=== PATIENT | male | born 1970 | race African-American/Black ===

== ENCOUNTER 2018-01-31 13:01 | Emergency (ER) | payer OTHER, MEDICAID ==
[~2018-01-31] VITALS: Ht 180.3 cm; Wt 131.1 kg
[~2018-01-31 13:01] MED LIST: AMOXICILLIN 50500 MG PO; AMOXICILLIN875 MG PO; AMOXIL 875 MG875 M1 PO; ANTIVERT25 MG PO; ASPIRIN325 PO; BACTRIM DS TAB1 EACH PO; CYCLOBENZAPRINE5 MG PO; ELIQUIS5 MG PO; FLEXERIL PO; HYDROCODONE-AP1 EAC6 PO; IBUPROFEN 600600 M1 PO; IBUPROFEN 800800 M1 PO; LIDOCAINE VISC100 M1 MM; MEDROLDOSEPACK PO; MUCINEX D TABL1 EAC1 PO; NAPROSYN500 MG PO; NOHOMEMEDICATIONS; NORCO 5-325 TA1 EAC1 PO; NORCO 5-325 TA1 EACH PO; OXYCODONE HCL 55 MG PO; OXYCONTIN10 M1 PO; PENICILLIN V P500 MG PO; PENICILLIN VK500 MG PO; PREDNISONE 10 M10 M1 PO; TRAMADOL 50 MG50 MG PO; VALIUM2 MG PO; VEETIDS 250MG250 M1 PO; XARELTO15 MG PO; XARELTO20 MG PO; ZPAK PO
[2018-01-31 13:57] LABS: ABSOLUTE BASOPHILS 0.1 thou/uL (0.0-0.2); ABSOLUTE EOSINOPHILS 0.2 thou/uL (0.0-0.7); ABSOLUTE LYMPHOCYTES 3.3 thou/uL (0.8-5.3); ABSOLUTE MONOCYTES 0.6 thou/uL (0.0-1.2); ABSOLUTE NEUTROPHILS 2.9 thou/uL (1.6-8.1); EOSINOPHILS 2.5 %; HEMATOCRIT 44.2 % (42.0-52.0); HEMOGLOBIN 14.4 gm/dL (14.0-18.0); LYMPHOCYTES 46.3 %; MCH 26.1 pg (26.0-34.0); MCHC 32.5 g/dL (28.0-37.0); MCV 80.4 fL (80.0-100.0); MONOCYTES 8.8 %; MPV 8.2 fl. (7.2-11.1); NUCLEATED RBCS 0 /100WBC; PLATELET COUNT* 318 thou/uL (150-400); POLYS 41.4 %; RBC 5.51 mil/uL (4.50-6.00); RDW-CV 16.2 % (10.5-14.5); WBC 7.1 thou/uL (4.0-11.0)
[2018-01-31 14:11] LABS: ANION GAP 8 mmol/L (7-16); BUN 23 mg/dL (7-18); CALCIUM 8.7 mg/dL (8.5-10.1); CHLORIDE 104 mmol/L (98-107); CO2 28 mmol/L (21-32); CREATININE 1.7 mg/dL (0.6-1.3); GLUCOSE 108 mg/dL (70-99); POTASSIUM 3.9 mmol/L (3.5-5.1); SODIUM 140 mmol/L (136-145)
[2018-01-31 14:15] LABS: ALBUMIN 3.5 g/dL (3.4-5.0); ALKALINE PHOSPHATASE 69 U/L (46-116); SGOT 17 U/L (15-37); SGPT 18 U/L (30-65); TOTAL BILIRUBIN 0.3 mg/dL (<0.1-1.0); TOTAL PROTEIN 8.3 g/dL (6.4-8.2); TROPONIN-I LEVEL <0.06 ng/mL (<0.06)
[2018-01-31 15:55] VITALS: BP 145/72
--- NOTE | 2018-01-31 17:29 | EKG ---
[place] [address] ELECTROCARDIOGRAM REPORT Name: FEDERICO DURON Room: [facility]#: [id number] Admission: 01/31/18 Attend Phys: Discharge: 01/31/18 Date of : 72 Report #: [id number] THIS REPORT FOR: //name// [facility] ED Test Date: 2018-01-31 Test Time: 13:07:31 Pat Name: FEDERICO DURON Department: Room: Gender: M Can Closing Machine Operator: JACKIE : 1970 Requested By: Tammie Anderson Order Number: [id number] [id number] MD: Brant Dillon Measurements Intervals [place] Rate: 72 P: 55 KS: 150 QRS: 10 QRSD: 92 T: -31 QT: 375 QTc: 411 Interpretive Statements Sinus rhythm Borderline T abnormalities, inferior leads Compared to ECG 12/12/2016 22:02:28 No significant changes Electronically Signed On 01-31-2018 17:28:51 FILM SORTER by Brant Dillon [email or web address] <ELECTRONICALLY SIGNED> By: Brant Dillon MD, [facility] 01/31/18 1728 1307 130 Brant Dillon MD, FACC /EPI
== END 2018-01-31 15:56 | disposition home or self-care (01) ==
LOC: M.ERS 13:01
PROVIDERS: Personal Emergency Response Attendant
DX: R00.2 Palpitations (principal); R42 Dizziness and giddiness; J45.909 Unspecified asthma, uncomplicated; Z87.891 Personal history of nicotine dependence

== ENCOUNTER 2019-11-28 17:47 | Emergency (ER) | payer OTHER ==
[~2019-11-28] VITALS: Ht 180.3 cm; Wt 125.7 kg
[2019-11-28 18:37] LABS: ABSOLUTE BASOPHILS 0.1 thou/uL (0.0-0.2); ABSOLUTE EOSINOPHILS 0.1 thou/uL (0.0-0.7); ABSOLUTE MONOCYTES 0.7 thou/uL (0.0-1.2); ABSOLUTE NEUTROPHILS 4.3 thou/uL (1.6-8.1); BASOPHILS 0.9 %; EOSINOPHILS 1.4 %; HEMATOCRIT 44.3 % (42.0-52.0); HEMOGLOBIN 14.7 gm/dL (14.0-18.0); LYMPHOCYTES 36.9 %; MCH 27.1 pg (26.0-34.0); MCHC 33.2 g/dL (28.0-37.0); MCV 81.6 fL (80.0-100.0); MONOCYTES 8.2 %; MPV 7.3 fl. (7.2-11.1); NUCLEATED RBCS 0 /100WBC; PLATELET COUNT* 333 thou/uL (150-400); POLYS 52.6 %; RBC 5.43 mil/uL (4.50-6.00); RDW-CV 15.8 % (10.5-14.5); WBC 8.1 thou/uL (4.0-11.0)
[2019-11-28 18:49] LABS: APTT 30.4 Seconds (25.0-31.3); CALCIUM 8.9 mg/dL (8.5-10.1); CREATININE 1.1 mg/dL (0.6-1.3); POTASSIUM 3.7 mmol/L (3.5-5.1); PROTIME 10.7 Seconds (9.20-11.50)
[2019-11-28 19:02] LABS: ALBUMIN 3.5 g/dL (3.4-5.0); MAGNESIUM 2.2 mg/dL (1.8-2.4); TOTAL BILIRUBIN 0.3 mg/dL (<0.1-1.0)
[2019-11-28 19:16] VITALS: BP 131/69
--- NOTE | 2019-11-30 08:39 | EKG ---
[place] [address] ELECTROCARDIOGRAM REPORT Name: FEDERICO DURON [id number] Admission: 11/28/19 Attend Phys: Discharge: 11/28/19 Date of : 72 Report #: [id number] THIS REPORT FOR: //name// [facility] [place] ED Test Date: 2019-11-28 Test Time: 17:50:36 Pat Name: FEDERICO DURON Department: Room: Gender: M Sandwich Hand: : 1970 Requested By: Thomas Mchugh Order Number: [id number] MD: Be Patel Measurements Intervals [place] Rate: 63 P: 47 MS: 156 QRS: 10 QRSD: 92 T: 6 QT: 383 QTc: 393 Interpretive Statements Sinus rhythm Compared to ECG 01/31/2018 13:07:31 T-wave abnormality no longer present Electronically Signed On 11-30-2019 8:38:42 MACHINING TECHNICIAN by Be Patel [email or web address] <ELECTRONICALLY SIGNED> By: Be Patel MD, [facility] 11/30/19 0838 1750 175 Be Patel MD, FACC /EPI
== END 2019-11-28 19:18 ==
LOC: M.ERS 17:47
PROVIDERS: Family Medicine
DX: R07.89 Other chest pain (principal); J45.909 Unspecified asthma, uncomplicated; Z87.891 Personal history of nicotine dependence

== ENCOUNTER 2020-06-29 19:18 | Emergency (ER) | payer OTHER ==
[~2020-06-29] VITALS: Ht 177.8 cm; Wt 130.2 kg
[2020-06-29 19:29] VITALS: BP 161/96
[2020-06-29] MEDS ORDERED: FLONASE 0.05%50 MCG NARES ×2 (19:52→19:53)
[2020-06-29] MEDS ORDERED: PREDNISONE50 MG PO (19:52)
[2020-06-29] MEDS ORDERED: AMOXICILLIN875 MG PO (19:53)
== END 2020-06-29 20:08 | disposition home or self-care (01) ==
LOC: M.ERS 19:18
DX: H92.01 Otalgia, right ear (principal); J45.909 Unspecified asthma, uncomplicated; Z87.891 Personal history of nicotine dependence

== ENCOUNTER 2020-08-05 21:01 | Emergency (ER) | payer OTHER ==
[~2020-08-05] VITALS: Ht 180.3 cm; Wt 131.5 kg
[~2020-08-05 21:01] MED LIST changes: +FLONASE 0.05%50 MCG NARES; +PREDNISONE50 MG PO
[2020-08-05] MEDS ORDERED: NORCO 5-325 TA1 EAC2 PO (21:28)
[2020-08-05] MEDS ORDERED: AUGMENTIN 875-1 EACH PO (21:28)
[2020-08-05 21:40] VITALS: BP 154/90
== END 2020-08-05 21:40 | disposition home or self-care (01) ==
LOC: M.ERS 21:01
DX: S91.012A Laceration without foreign body, left ankle, initial encounter (principal); J45.909 Unspecified asthma, uncomplicated; Z87.891 Personal history of nicotine dependence; W54.0XXA Bitten by dog, initial encounter; Y93.89 Activity, other specified; Y92.89 Other specified places as the place of occurrence of the external cause; Y99.8 Other external cause status

== ENCOUNTER 2020-09-01 21:20 | Emergency (ER) | payer OTHER ==
[~2020-09-01] VITALS: Ht 180.3 cm; Wt 140.2 kg
[~2020-09-01 21:20] MED LIST changes: +AUGMENTIN 875-1 EACH PO; +NORCO 5-325 TA1 EAC2 PO
[2020-09-01] MEDS ORDERED: HYDROCODON-ACE1 EAC8 PO (23:42)
[2020-09-01] MEDS ORDERED: FLEXERIL PO (23:42)
[2020-09-01 23:49] VITALS: BP 135/70
== END 2020-09-01 23:50 | disposition home or self-care (01) ==
LOC: M.ERS 21:20
DX: M54.6 Pain in thoracic spine (principal); J45.909 Unspecified asthma, uncomplicated; Z87.891 Personal history of nicotine dependence